=== PATIENT | female | born 1995 | race Caucasian/White ===

== ENCOUNTER 2019-01-30 15:30 | Emergency (ER) | payer OTHER, MEDICAID, SELFPAY ==
[2019-01-30 15:32] VITALS: BP 130/71; PULSE 92; RESP 18; TEMP 37.2; O2SAT 98; BMI 31.8
--- NOTE | 2019-01-30 17:03 | ED.VISSUMM ---
- ER Visit Summary Date of Service: 01/30/19 Chief Complaint: Vomiting in History of Present Illness: The patient is a 23 F presenting with vomiting in . Patient states she recently found out that she is . She believes she is approximately 2 weeks . She has had vomiting since yesterday. She believes she had 20 episodes of vomiting today. She denies diarrhea. Denies abdominal or pelvic pain. She complains of mild dysuria. She denies vaginal bleeding. Denies other complaints. Physical Examination: Vitals are stable. Patient is afebrile. Alert no acute distress. HEENT exam is unremarkable. Neck is supple. Lungs are clear and equal bilaterally. Heart is regular rate and rhythm. Abdomen is soft nontender nondistended. No rebound or guarding Extremities are unremarkable. Skin is warm and dry. Remainder of exam is unremarkable. Emergency Department Course and Treatment: Patient is given IV fluids, Phenergan. Chemistries unremarkable. Urinalysis shows trace ketones, 0 white blood cells. Following fluids, patient is feeling improved. She is able to tolerate p.o. in the emergency department. She is given a prescription for Phenergan. Advised to follow-up with PRODUCE INSPECTOR. She is advised to return to ED for worsening complaints. Disposition: Discharge home Impression: Vomiting in This note was generated with eTapestry dictation software. It may contain incorrect words, spelling, and punctuation that were not noted in review of the chart prior to signing ED Disposition - Plan for ED Patient: Instructions: ED Care Prescriptions: proMETHazine tablet [Phenergan] 25 mg PO Q6H PRN PRN #10 tablet PRN Reason: Nausea Referrals: [facility] [Primary Care Provider] -
[2019-01-30] MEDS: 0.9% Normal Saline 1,000 ML 999 ML IV ×2 (17:24→18:52)
[2019-01-30] MEDS: proMETHazine 25 MG/ML Syringe 6.25 MG IV (17:27)
[2019-01-30 17:47] LABS: Anion Gap 8 (5-15); BUN 6 mg/dL (7-18); BUN/Creat Ratio 10.9 RATIO (10-20); Calcium,Total 8.9 mg/dL (8.5-10.1); Chloride 104 mmol/L (98-107); Creatinine, Serum 0.55 mg/dL (0.55-1.02); EST Glomerular Filtration Rate 144 mL/min (>60); Est Glom Filt Rate - Afr Amer 174 mL/min (>60); Glucose 80 mg/dL (74-106); Potassium 3.8 mmol/L (3.5-5.1); Sodium Level 137 mmol/L (136-145)
[2019-01-30 18:43] LABS: Red Blood Cells-Urine 0 SEEN /hpf (0-5); White Blood Cells 0 SEEN /hpf (0-5)
[2019-01-30 18:48] LABS: Color, Urine Yellow (Yellow); Glucose, Dipstick Normal (Normal); Ketone-Dipstick 15 mg/dl (Negative); Leukocyte Esterase-Dipstick Negative /ul (Negative); Nitrite-Dipstick Negative (Negative); Occult Blood-Urine Negative /ul (Negative); Protein-Dipstick Negative (Negative); Urine Bilirubin Dipstick Negative (Negative); Urine Clarity Clear (Clear); Urine Urobilinogen Normal (Normal); Urine pH 6.5 (5.0 - 8.0)
[2019-01-30 18:54] LABS: Squamous Epithelial Cells - UA 0-5 SEEN /hpf (5-10)
[2019-01-30 18:55] LABS: Bacteria RARE /hpf (None Seen); Mucous, Urine RARE /hpf (<or=2+)
--- NOTE | 2019-01-30 20:35 | ED.DEP ---
ED Disposition - Plan for ED Patient: Instructions: ED Care Prescriptions: proMETHazine tablet [Phenergan] 25 mg PO Q6H PRN PRN #10 tablet PRN Reason: Nausea [facility] [[facility] [place] -
[2019-01-30 20:45] VITALS: BP 121/71; PULSE 76; RESP 16
== END 2019-01-30 20:45 | disposition home or self-care (01) ==
PROVIDERS: Emergency Provider Emergency Medicine
DX: O21.9 Vomiting of pregnancy, unspecified (principal); Z3A.01 Less than 8 weeks gestation of pregnancy; O99.331 Smoking (tobacco) complicating pregnancy, first trimester
CPT/HCPCS: 80048; 81001; 96361; 96374; 99283; J7030; A4216

== ENCOUNTER 2019-08-12 15:35 | Outpatient (CLI) | payer MEDICAID, SELFPAY ==
[2019-08-12 15:50] VITALS: BMI 33.0
--- NOTE | 2019-08-13 14:12 | OB.TRI.NOTE ---
History of Present Illness Date of Service: 08/12/19 Was patient seen by the physician?: No Reason For Visit: DECREASED MOVEMENT Date of Service: 08/12/19 Final DEVON: 09/28/19 Gestational age: 33 Weeks and 2 Days Allergies ciprofloxacin [From Cipro] Allergy (Verified 01/30/19 15:31) Hives metformin Allergy (Verified 01/30/19 15:31) Hives lactose Adverse Reaction (Verified 01/30/19 15:31) Diarrhea NST - FHR Rate Baby A Baseline: 125 Variability:: Moderate Accelerations:: 15 x 15 Decelerations:: None NST Reactive:: Yes, Appropriate for gestational age FHR Category:: Category I Uterine Activity:: quiet Impression/Plan 23-year-old 3 para 2 at 33-2/7 weeks gestation decreased movement. NST is reactive. Patient is concerned about well-being. Patient reports being told that she is concerned about her placenta. NST is reactive. Scheduled for consult and ultrasound tomorrow for M
== END 2019-08-12 16:35 | disposition home or self-care (01) ==
LOC: WPOUT 15:39 → WP 15:39
PROVIDERS: Referring Provider Obstetrics & Gynecology; Visit Provider Obstetrics & Gynecology
DX: O36.8130 Decreased fetal movements, third trimester, not applicable or unspecified (principal); Z3A.33 33 weeks gestation of pregnancy; Z88.1 Allergy status to other antibiotic agents
CPT/HCPCS: 59025; 59050; 99218; G0378

== ENCOUNTER 2019-09-09 06:44 | Inpatient (IN) | payer MEDICAID, OTHER, SELFPAY ==
[2019-09-09] MEDS: Lactated Ringers 1,000 ML 50 ML IV (07:35)
[2019-09-09 07:49] LABS: Absolute Lymphocyte Count 4.29 X10^3/uL (0.83-4.51); Absolute Neutrophil Count 12.6 X10^3/uL (2.0-7.7); Basophil# 0.05 X10^3/uL; Basophil% 0.3 % (0-1); Eosinophils% 1.1 % (0-5); Hematocrit 35.7 % (37-47); Hemoglobin 12.1 g/dL (12.0-15.0); Lymphocyte # 4.29 X10^3/ul (4.0); Lymphocyte % 22.9 % (19-41); Mean Corp Hgb Conc 33.9 g/dL (32-36); Mean Corpuscular Hgb 29.2 pg (27.0-32.0); Mean Corpuscular Volume 86.2 fL (81-99); Mean Platelet Vol. 11.4 fl (6.2-12.0); Monocyte# 1.41 X10^3/uL; Monocyte% 7.5 % (0-10); NRBC Flagged by Analyzer 0 % (0-5); Neutrophil # 12.57 X10^3/uL (2.7-7.7); Neutrophil % 67.2 % (47-70); POSITIVE MORPHOLOGY YES; Platelet Count 223 K/mm3 (150-450); RBC Distribution Width CV 13.1 % (11.6-14.6); RBC Distribution Width SD 40.5 fl (35.1-43.9); Red Blood Count 4.14 M/mm3 (4.2-5.4); White Blood Count 18.7 K/mm3 (4.4-11.0)
[2019-09-09 07:51] LABS: Differential Indicated SCAN CRITERIA MET
[2019-09-09 08:07] LABS: Atypical Lymphocyte 2+ %
[2019-09-09 08:08] LABS: Differential Comment SCANNED
[2019-09-09 08:10] VITALS: BMI 33.8
[2019-09-09] MEDS: Oxytocin 30 units/NS 500 ml 30 UNITS/500 ML IV.SOLN IV (08:10)
--- NOTE | 2019-09-09 12:19 | PCM.HP.OB ---
History Date of Admission: 09/09/19 Final DEVON: 09/28/19 Final DEVON Source: US <20 weeks Gestational age: 37 Weeks and 2 Days History of this : This is a 23 year-old, 3P2 at 37-2/7 weeks gestation presents for induction of labor due to gestational hypertension. The patient's diastolic blood pressures have been elevated in the 80s to 90s range in the office and at home. Her systolics have been within normal range. She denies any visual disturbances. She does have some mild ache this morning. Eyes any epigastric pain. She denies any regular contractions. No vaginal bleeding or leaking of fluid. She has a history of preeclampsia with her second . Surgical history: First full-term vaginal delivery without complications. She was induced. 7 pound 14 ounce . patient was diagnosed with preeclampsia. They attempted to induce her, patient reports she did get past 2 cm and they offered her to go home versus section and patient had a section. Allergies ciprofloxacin [From Cipro] Allergy (Verified 09/09/19 10:04) Hives metformin Allergy (Verified 09/09/19 10:04) Hives lactose Adverse Reaction (Verified 09/09/19 10:04) Diarrhea Home Medications: Home Medications Ferrous Sulfate [Iron] 325 mg PO BID 08/12/19 Ondansetron [Zofran Odt] 4 mg PO Q8H PRN PRN 08/12/19 Vits [Prenatabs FA] 1 tab PO DAILY 08/12/19 Aspirin [Aspirin, Baby] 81 mg PO DAILY@0800 09/09/19 Smoking Status: Current every day smoker Alcohol: None Number of Fetus(es): 1 NST - FHR Rate Baby A Baseline: normal Variability:: Moderate Accelerations:: 15 x 15 NST Reactive:: Yes Uterine Activity:: irreg ctxs History Past Pregnancies: Past Pregnancies Delivery Date Name GA/Weeks Outcome Route Weight Infant Gender Labor Length Anesthesia Delivery Location Provider FOB Expected Infant Delivery Method: Spontaneous Vaginal Review of Systems Constitutional: Denies: Chills, Fever Eyes: Denies: Blurred vision, Vision Change Cardiovascular: Reports: Edema - mild. Denies: Chest Pain Respiratory: Denies: Cough, Shortness of Breath Skin: Denies: Rash Neurological: Reports: Headaches - mild this am. Denies: Blurred vision, Seizures Psychiatric: Denies: Anxiety, Depression Physical Exam General: Alert, Cooperative, No apparent distress Cardiovascular: Regular rate Lungs: Normal air movement Abdomen: Soft, Non Tender, Non-Distended, Gravid, Appropriate for Gestational Age Extremities:: No edema - trace, Deep tendon reflexes - 3+, Other - no clonus Neurological: Cranial nerves II-XII grossly intact SOFTWARE TEST SPECIALIST: Normal external genitalia Estimated gestational size: Appropriate for gestational size Presentation: Cephalic Cervix Dilation (cm): 2 Station: -3 Effacement (%): 50 Assessment/Plan All Active Problems Physical exam, pre-employment (Acute) This is a 23 year-old, -0-0-2 at 37 2/7 weeks with gestational hypertension without evidence of preeclampsia. Patient is admitted for induction of labor. Risk benefits and alternatives to induction at 37 weeks have been discussed with the patient, questions were answered to her satisfaction she desires to proceed. Patient did receive betamethasone last week on 09/05 and 09/06/2019 in the office. In addition, risk benefits and alternatives to trial of labor versus section were discussed with patient, questions were answered to her satisfaction and she desires a trial of labor. Consent had been signed for this in the office as well. Seizure note: At approximately 8:40 AM the Aldana catheter was placed over the stylette through the cervical loss in the usual sterile fashion. The balloon was inflated to 30 cc and placement over the internal loss was confirmed. The patient and the fetus tolerated the procedure well.
[2019-09-09] MEDS: Lactated Ringers 500 ML 999 ML IV ×2 (18:12→19:58)
[2019-09-09] MEDS: fentaNYL-bupivacaine (epidural) 100 ML BAG EPIDURAL ×2 (18:57→23:53)
[2019-09-09] MEDS: Mag Hydrox/Al Hydrox/Simeth 30 ML UDC PO (19:27)
[2019-09-09] MEDS: Lactated Ringers 1,000 ML 200 ML IV (22:03)
[2019-09-10] MEDS: Lactated Ringers 500 ML 999 ML IV ×2 (00:50→04:06)
[2019-09-10] MEDS: Lactated Ringers 1,000 ML 200 ML IV (03:56)
[2019-09-10] MEDS: fentaNYL-bupivacaine (epidural) 100 ML BAG EPIDURAL (04:35)
[2019-09-10] MEDS: Amnioinfusion- 0.9% NS 1,000 ML IV.SOLN. 200 ML INTRA-UTER (04:35)
[2019-09-10] MEDS: Acetaminophen 500 MG Tablet 1000 MG PO (06:19)
[2019-09-10] MEDS: Oxytocin 30 units/NS 500 ml 30 UNITS/500 ML IV.SOLN 334 UNITS IV (07:05)
--- NOTE | 2019-09-10 07:18 | PCM.OPRPT ---
Vaginal Delivery Maternal Presentation: Medically Indicated Induction Method of Induction: Pitocin, Aldana Bulb, Amniotomy Medical Reason for Induction: Gestational Hypertension, - - previous Amniotic Membrane Rupture Type: Artificial Amniotic Fluid Description: Clear Final DEVON: 09/28/19 Final DEVON Source: US <20 weeks Gestational age: 37 Weeks and 3 Days Date of Procedure: 09/10/19 Pre-Operative Diagnosis: labor Post-Operative Diagnosis: same Surgery/ Procedure Performed: Spontaneous Vaginal Delivery Type of Anesthesia: Epidural Description of Procedure: A vigorous female infant was delivered ERIKA over intact perineum. Loose nuchal cord X2 was easily reduced. The remainder the infant was delivered with maternal pushing and gentle traction only in less than 15 seconds. The Pitocin infusion was initiated for active management of the third stage. The cord was clamped and cut after 1 minute. The was attended to by the waiting nursing staff. The placenta was delivered spontaneously and intact. The cervix and vagina were intact. The lower uterine segment was palpated and the scar was intact. Sponge and needle counts were correct. A vaginal sweep was completed by me. Presentation: ERIKA Placental Delivery Description: Spontaneous Placenta Disposition: [facility] Cord Vessel Description: 3 Vessels Nuchal Cord Compression: Without compression Cord Entanglement: Around neck x 2, loose Drain: Aldana to straight drain Estimated Blood Loss: 200 Infant A gender: Female (1 minute): 8 (5 minute): 8 Episiotomy Description: None Laceration: None Medications given after delivery: IV Pitocin Complications: None
[2019-09-10] MEDS: 0.9% Saline Lock 10 ML Syringe IV (09:41)
--- NOTE | 2019-09-10 12:00 | NURSING ---
Duval bulb removed, after 10 cc normal saline drained from duval bulb.
[2019-09-10 14:10] VITALS: BP 119/75; PULSE 87; RESP 20; TEMP 36.7
[2019-09-10 17:20] VITALS: BP 112/62; PULSE 80; RESP 18; TEMP 36.8
--- NOTE | 2019-09-10 19:50 | NURSING ---
Dr. Griffiths notified of pt. having numbness in left left from mid-calf down into foot. This has persisted through most of day, delivered at 0701 with epidural turned off at that time and removed at ~ 0930. Pt. reporting numbness has not changed for majority of day. Per Dr. Griffiths, will monitor this until 24 hrs and will see how pt. is doing in the am with numbness. Ok to d/c IV at this time from anesthesia standpoint.
[2019-09-10 19:56] VITALS: BP 115/57; PULSE 67; RESP 17; TEMP 37.1
--- NOTE | 2019-09-10 19:57 | NURSING ---
Pt. appropriate throughout day with . and pt. holding , checking and changing diapers. They are both alert about feeds. After instruction on bottles being good for 1 hr after seal broken, FOB found feeding bottle that had been opened 2 hrs. prior. This after 's first feed. For infant's next feed, there was an open bottle in room, had taken ~3 cc from bottle. When nursing back in to check appx. 1 hr from feed time, mother and father state that has been very sleepy, but that she keeps trying to put her blanket in her mouth. Attempt to feed per RN, and took 16cc of formula, burping well in between. Talked with parents about infant being very sleepy, and may need some encouragement to eat. Pt. verbalized understanding. At time for next feed, pt. states I need to be getting a bottle out for her. Encouraged pt. to unwrap and undress as needed to get to feed. When back in room for report, infant had taken 21 cc of formula without assist from nursing. Pt. and FOB very attentive to throughout day.
[2019-09-10 23:18] VITALS: BP 120/60; PULSE 82; RESP 16; TEMP 37.1; O2SAT 97
[2019-09-11 04:43] VITALS: BP 132/62; PULSE 78; RESP 16; TEMP 37.1
--- NOTE | 2019-09-11 08:33 | PCM.PN.OB ---
Subjective: Doing well per patient and nursing staff. Ambulating and taking PO without difficulty. Voiding and passing flatus. Pain controlled. Denies headache, visual changes, chest pain, or shortness of breath. Bottle feeding. Requesting D/C home today. - Physical Exam General: Alert, Oriented x3, Cooperative HEENT: Atraumatic, Normocephalic Neck: Trachea Midline Lungs: Clear to auscultation, No rhonchi, No wheeze Cardiovascular: Regular rate, Regular Rhythm, No murmurs Abdomen: Bowel Sounds Present Extremities: No edema Neurological: Deep Tendon Reflexes 2+/4 and Symmetrical Psych/Mental Status: Normal Affect, Appropriate Vital Signs Temp Pulse Resp BP Pulse Ox 98.7 F 78 16 132/62 H 97 09/11/19 04:43 09/11/19 04:43 09/11/19 04:43 09/11/19 04:43 09/10/19 23:18 Oxygen Delivery Method Room Air Weight: 197 lb 1.492 oz Body Mass Index (BMI) 33.8 Intake and Output for Last 24 Hours 09/09/19 09/10/19 09/11/19 23:59 23:59 23:59 Intake Total 2755.21 / 2755.21 2894.73 / 2894.73 Output Total 200 / 200 1850 / 1850 Balance 2555.21 / 2555.21 1044.73 / 1044.73 Medical Necessity - Tobacco Use Smoking Status: Current every day smoker Assessment/Plan All Active Problems Physical exam, pre-employment (Acute) A:PPD #1 Gestational HTN during P: 1) Doing well per patient and nursing staff. Requesting D/C home today. 2) BP normal high range, reviewed Pre-e warning signs, to make appointment Monday for BP check 3) Declines pain medications, will get OTC 4) D/C home
--- NOTE | 2019-09-11 08:39 | DCINST_ITS ---
Discharge Diet: No Restrictions Discharge Activity: Return to Normal Activity, May not drive while taking narcotic pain medications., May Shower, May Take a Tub Bath May resume sexual activity in: 4-6 weeks Weight Bearing Status: Full weight bearing Additional Activity Instructions:: Nothing in the vagina for 4-6 weeks. You may return to work/school in 6 weeks. Call your doctor if your incision/area has: Continuous Slow Oozing, Sudden Increased Bleeding, Increased Pain/ Swelling, Increased Redness, Foul Smelling Discharge Call your doctor if you observe: Inability to urinate, Inability to have a bowel movement, Using more than one pad per hour, Shortness of breath, Chest pain, Increased palpitations (irregular heartbeat), Uncontrolled pain Additional Instructions: If you experience any of the following, contact your healthcare provider. * Bleeding that soaks a pad every hour for 2 hours * Fever 100.4 or higher * Unrelieved incision or abdominal pain * Swelling, redness, discharge or bleeding from your incision or episiotomy site * Your incision begins to separate * Problems urinating (including inability to urinate or burning while urinating). * Visual changes * Severe headache * Flu-like symptoms * Pain or redness in one of both of your breasts * Pain, warmth, tenderness or swelling in your legs, especially the calf area * Frequent nausea and vomiting * Symptoms of depression or anxiety If you experience any of the following, call 911 or go to the nearest Emergency Room. * Chest pain * Problems breathing * Seizure activity * Partial or complete paralysis of a body part, slurred speech, weakness or drooping of the face, or a sudden inability to walk or hold your balance Allergies/Adverse Reactions: Allergies ciprofloxacin [From Cipro] Allergy (Verified 09/09/19 10:04) Hives metformin Allergy (Verified 09/09/19 10:04) Hives lactose Adverse Reaction (Verified 09/09/19 10:04) Diarrhea Medications to take at Discharge Ferrous Sulfate [Iron] 325 mg PO BID 08/12/19 Please Follow Up With: Chanelle John MD When: Call to make an appointment with your doctor in 5 days. Make appointment on Monday09/16/19 for BP check and visit at 6 weeks. Primary Care Physician: [facility] [Primary Care Provider] - Test Results: Test results from this visit will be discussed in further detail at your follow- up appointment, if applicable.
[2019-09-11 09:00] VITALS: BP 116/75; PULSE 74; RESP 16; TEMP 36.1; O2SAT 99
[2019-09-11 14:00] VITALS: BP 100/53; PULSE 63; RESP 16; TEMP 36.3; O2SAT 99
--- NOTE | 2019-09-11 15:12 | CASEMGMT ---
Social Work Assessment Labor and Delivery Unit Date of Referral: 09/10/2019 Time of Referral: 1953 Referred By: Dr. Yinka John Date of Intervention: 09/11/2019 Time of Intervention: 1255 Reason for Referral: resources History obtained from: medical records and mother of baby (MOB) Morenita Hernandez; father of baby (FOB) Pb Villegas also present. Household composition: MOB and FOB live together, deny any issues or concerns with home situation. MOB's and FOB's older son lives in the home, and MOB's oldest child from another marriage visits every other weekend. Patient's parent/guardian status: MOB and FOB have been since October 2018 but have been together longer. No reports of any domestic violence or safety issues in the home. JEFFRY denies nay abuse issues upon admission to the labor and delivery unit. JEFFRY was one other time and had one child from first marriage. Now two children from current marriage. Minor children include: Harris Triplett (age 5), He Villegas (18 months), and baby girl Alba Villegas (born 09.10.2019). Harris visits every other weekend and lives primarily with his father and stepmother in [place], [place] area due Harris starting school and that parents system having more flexibility with work schedule to adapt to school scheduling. JEFFRY reports she and FOB both work fulltime as well as both are in school so their schedules are a little more tight in being able to easily adjust to demands of school schedules. Medical History: JEFFRY is G3, P2 to 3 after delivering Alba. JEFFRY started care in the 1st trimester, and adequate thereafter. Chart indicates JEFFRY with gestational Hypertension and history of Preeclampsia. Alba born at 37 weeks, weighed 5 pounds 14 ounces, Apgars 8 and 9 at 1 and 5 minutes of life. Educational Status: JEFFRY graduated high school, currently attending [employer] taking general courses in preparation for admittance to the nursing program. No issues with reading, writing, or learning comprehension. 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 COMFORT works first shift at [employer]. JEFFRY also receives 1800 a month in disability through the [place]. MOB reports to be 90% disability through the [place]. Supplies: MOB and FOB report to have needed supplies including pack-n-play, cradle, bottles, formula, clothing, diapers, and wipes. Childcare/Caregiver(s): MOB and FOB. No daycare needed due to parents working opposite shifts at this point. Transportation: No issues reported, both parents drive. Programs/Agencies Involved: medicaid through [place]. History of WIC and [facility]. At this time decline referral to [facility]. No interest in reapplying for WIC but reports to know where to go if changes mind. [facility] and goes to the [facility] clinic for general medical needs. Children Services/Legal Issues: No legal issues for either. FOB reports history of [facility] Children services involvement after he was holding He and fell while holding the baby and baby hit his head. FOB reports children services made to obligatory visit after a child has a head injury and that this was a one time visit as injury consistent to reports of COMFORT falling while holding the baby. FOB reports after this accident though, and having a baby who had a head injury, FOShima started to take the baby to the doctors everytime He bumped his head or had a small scratch. FOB reports the doctors offices called children services for the parents overusing the medical office administrator. FOB report the case was opened for 45 days and closed out. No referrals to parenting classes and nothing went to court. No current or active involvement with children services. Behavioral Health Issues: Mental Health History: MOB reports upon leaving the MOB was diagnosed with depression, as MOB had wanted to make the her life career. MOB reports besides this not other history of depression or anxiety. No history of suicidal ideation or attempts. No history of depression or anxiety reported. Substance Use History: MOB and FOB both deny substance use issues. MOB denies alcohol, marihuana, cocaine, heroin, or meth during this . MOB did smoke tobacco. Drug Screens: None noted in the care records. Family/Social Stressors: No reports of current or recent social stressors. JEFFRY admits leaving the miliary was hard but has adjusted and reports that had she remained in the would not have met FOB. Support Systems: MOB reports FOB is a good emotional support. MOB reports to have good practical help from FOB's family and MOB's family who all live in this area. MOB reports will have help and that FOB will be home for a short time to help with transition home. Depression/Shaken Baby/Safe Sleeping: Educated to shaken baby prevention, and safe sleeping. depression and anxiety discussed including risk factors and importance of seeking out help and assistance. ASSESSMENT: Met with MOB and FOB in room, introducing to social work role and reason for visit. MOB held good eye contact, answered questions non-defensively and had appropriate mood and affect. MOB reports to feel to have adequate support from family and all needed baby supplies to get started. MOB expressed understanding of importance in letting supports and health care providers know should depression arise. MOB reports to feel a connectin to this baby, feeling there is a ramos present; excitement to have the baby. FOB quiet at first but then started to contribute to conversation, respectful towards MOB. This senior technical writer observed MOB gaze at baby who was under the bili lights, smile at baby and put hand on baby when baby fussed. Also observed FOB get up and attend to baby when baby became fussy. Parental interactions appropriate with the baby. PLAN: MOB and baby to home when ready. MOB has been given [facility] resource list of services sometimes helpful to new parents. depression packet provided as well, including resources for such. No other services requested or indicated. -COLEEN Gibbs, EQUITIES TRADER
[2019-09-11 20:00] VITALS: BP 115/65; PULSE 70; RESP 16; TEMP 36.2
[2019-09-12 01:39] VITALS: BP 98/52; PULSE 68; RESP 16; TEMP 36.6
[2019-09-12 07:30] VITALS: BP 118/72; PULSE 80; RESP 15; TEMP 36.8; O2SAT 98
[2019-09-12] MEDS: Etonogestrel 68 MG IMPLANT SQ (07:30)
--- NOTE | 2019-09-12 07:33 | DCINST_ITS ---
Discharge Diet: No Restrictions Discharge Activity: Return to Normal Activity, May not drive while taking narcotic pain medications., May Shower, May Take a Tub Bath May resume sexual activity in: 4-6 weeks Weight Bearing Status: Full weight bearing Additional Activity Instructions:: Nothing in the vagina for 4-6 weeks. You may return to work/school in 6 weeks. Call your doctor if your incision/area has: Continuous Slow Oozing, Sudden Increased Bleeding, Increased Pain/ Swelling, Increased Redness, Foul Smelling Discharge Call your doctor if you observe: Inability to urinate, Inability to have a bowel movement, Using more than one pad per hour, Shortness of breath, Chest pain, Increased palpitations (irregular heartbeat), Uncontrolled pain Additional Instructions: If you experience any of the following, contact your healthcare provider. * Bleeding that soaks a pad every hour for 2 hours * Fever 100.4 or higher * Unrelieved incision or abdominal pain * Swelling, redness, discharge or bleeding from your incision or episiotomy site * Your incision begins to separate * Problems urinating (including inability to urinate or burning while urinating). * Visual changes * Severe headache * Flu-like symptoms * Pain or redness in one of both of your breasts * Pain, warmth, tenderness or swelling in your legs, especially the calf area * Frequent nausea and vomiting * Symptoms of depression or anxiety If you experience any of the following, call 911 or go to the nearest Emergency Room. * Chest pain * Problems breathing * Seizure activity * Partial or complete paralysis of a body part, slurred speech, weakness or drooping of the face, or a sudden inability to walk or hold your balance Allergies/Adverse Reactions: Allergies ciprofloxacin [From Cipro] Allergy (Verified 09/09/19 10:04) Hives metformin Allergy (Verified 09/09/19 10:04) Hives lactose Adverse Reaction (Verified 09/09/19 10:04) Diarrhea Medications to take at Discharge Ferrous Sulfate [Iron] 325 mg PO BID 08/12/19 Ibuprofen [Motrin] 600 mg PO Q6H PRN #60 tab 09/12/19 The following prescriptions were given: Ibuprofen [Motrin] 600 mg PO Q6H PRN #60 tab PRN Reason: Pain Transmission Status: Pending to [facility] [id number] Please Follow Up With: Chanelle John MD - [phone] When: 1 week in my office for a BP check and 6 weeks for a exam [facility] [[facility] - Test Results: Test results from this visit will be discussed in further detail at your follow- up appointment, if applicable.
--- NOTE | 2019-09-12 07:34 | PCM.PN.OB ---
Subjective: pain well controlled, average lochia, no N/V - Physical Exam General: Alert, Cooperative, No apparent distress Vital Signs Temp Pulse Resp BP Pulse Ox 97.9 F 68 16 98/52 L 99 09/12/19 01:39 09/12/19 01:39 09/12/19 01:39 09/12/19 01:39 09/11/19 14:00 Oxygen Delivery Method Room Air Weight: 89.4 kg Body Mass Index (BMI) 33.8 Intake and Output for Last 24 Hours 09/10/19 09/11/19 09/12/19 23:59 23:59 23:59 Intake Total 2894.73 / 2894.73 Output Total 1850 / 1850 Balance 1044.73 / 1044.73 Medical Necessity - Tobacco Use Smoking Status: Current every day smoker Assessment/Plan All Active Problems Physical exam, pre-employment (Acute) PPD#2 s/p - successful doing well ready for d/c today infant was under bili lights last night, off of them now. Likely home today
--- NOTE | 2019-09-12 07:35 | OP.PCM_ITS ---
Report of Operation Date of Procedure: 09/12/19 Pre-Operative Diagnosis: contraception Post-Operative Diagnosis: same Surgery/Procedure Performed:: nexplanon insertion left arm Description of Surgical Findings:: Risk benefits and alternatives to Nexplanon insertion were discussed with patient, questions were answered to her satisfaction she desired to proceed. Consent was signed. Timeout was performed. Patient was placed in the dorsal supine position with her left arm placed at a right angle. Approximately 7 cm from the medial epicondyle over the triceps, proximally 5 cm below the biceps sulcus, the skin was prepped with ChloraPrep. 3 cc of 1% Xylocaine were used to anesthetize the area locally. The Nexplanon was then placed directly under the skin in the usual sterile fashion. The Nexplanon was deployed. It was palpated under the skin and excellent placement was confirmed. A Steri-Strip was placed over the puncture wound. Coban was placed around the wound. Wound instructions were reviewed with the patient. The patient tolerated the procedure well. Sign out was completed. intelligence manager: None Type of Anesthesia:: Local Estimated Blood Loss (mL): 0 Grafts/Implants Used: Nexplanon LOT [id number] Exp 01/15/2022 - Complications none
== END 2019-09-12 09:40 | disposition home or self-care (01) | DRG 807 ==
PROVIDERS: Admitting Provider Obstetrics & Gynecology; Referring Provider Obstetrics & Gynecology; Visit Provider Obstetrics & Gynecology
DX: O13.4 Gestational [pregnancy-induced] hypertension without significant proteinuria, complicating childbirth (principal); Z37.0 Single live birth; O99.334 Smoking (tobacco) complicating childbirth; F17.200 Nicotine dependence, unspecified, uncomplicated; O34.219 Maternal care for unspecified type scar from previous cesarean delivery; O69.81X0 Labor and delivery complicated by cord around neck, without compression, not applicable or unspecified; Z3A.37 37 weeks gestation of pregnancy; Z30.017 Encounter for initial prescription of implantable subdermal contraceptive; Z79.82 Long term (current) use of aspirin
CPT/HCPCS: 59025; 59050; 85025; 86850; 86900; 86901; 99218; J7030; J7120; A4216; G0378

== ENCOUNTER 2022-02-03 16:12 | Outpatient (CLI) | payer OTHER, SELFPAY ==
[2022-02-03 16:13] LABS: Bacteria 0 SEEN /hpf (None Seen); Mucous, Urine 0 SEEN /hpf (<or=2+); White Blood Cells 0 SEEN /hpf (0-5)
[2022-02-03 16:30] LABS: Color, Urine Yellow (Yellow); Glucose, Dipstick Normal (Normal); Ketone-Dipstick Negative (Negative); Leukocyte Esterase-Dipstick Negative /ul (Negative); Nitrite-Dipstick Negative (Negative); Occult Blood-Urine 50 /ul (Negative); Protein-Dipstick Negative (Negative); Specific Gravity, Urine 1.005 (1.002-1.030); Urine Bilirubin Dipstick Negative (Negative); Urine Clarity Sl. Cloudy (Clear); Urine Urobilinogen Normal (Normal)
[2022-02-03 16:38] LABS: Red Blood Cells-Urine 0-5 SEEN /hpf (0-5); Squamous Epithelial Cells - UA 0-5 SEEN /hpf (5-10)
== END 2022-02-03 23:59 | disposition home or self-care (01) ==
PROVIDERS: Visit Provider Physician Assistant
DX: R30.0 Dysuria (principal)
CPT/HCPCS: 81001; 87086; 87088

== ENCOUNTER 2023-08-17 18:57 | Emergency (ER) | payer OTHER, SELFPAY ==
[2023-08-17] VITALS (7 sets, daily range): BP systolic 102–145; BP diastolic 62–88; PULSE 68–109; RESP 14–28; TEMP 36.4; O2SAT 95–99; BMI 39.9
--- NOTE | 2023-08-17 19:00 | RAD_ITS ---
STUDY: X-RAY CHEST REASON FOR EXAM: Female, 27 years old. chest pain TECHNIQUE: PA COMPARISON: None. FINDINGS: The lungs are clear and expanded. Possible tiny calcified granuloma in right upper lobe versus benign bone island in the overlying the right clavicle There is no demonstrated pleural abnormality. Normal size heart. Normal mediastinum and dionne. Normal visualized pulmonary arteries. Normal visualized aortic arch and descending thoracic aorta. Normal visualized thoracic spine. Normal visualized ribs, clavicles, and shoulders. There is no demonstrated abnormality of the visualized soft tissue structures of the upper abdomen. RAD/Chest 1 View (Portable) IMPRESSION: No acute cardiopulmonary pathology Electronically Signed: Danny Del Castillo MD at 19:15 EDT ,
--- NOTE | 2023-08-17 19:00 | EKG12_ITS ---
Test Reason : CP Blood Pressure : / mmHG Vent. Rate : 093 BPM Atrial Rate : 093 BPM P-R Int : 126 ms QRS Dur : 094 ms QT Int : 360 ms P-R-T Axes : 025 -07 014 degrees QTc Int : 447 ms Normal sinus rhythm Minimal voltage criteria for LVH, may be normal variant ( R in aVL ) Borderline ECG No previous ECGs available Confirmed by LARA GERBER, SANDHYA ([id number]), editorial director WILTON ROSALES ([id number]) on 09/06/2023 11:27:09 AM Referred By: Confirmed By:SANDHYA BERMUDEZ MD
[2023-08-17 19:42] LABS: Absolute Lymphocyte Count 3.08 X10^3/uL (0.83-4.51); Basophil# 0.08 X10^3/uL; Basophil% 0.8 % (0-1); Eosinophil# 0.12 X10^3/uL; Eosinophils% 1.2 % (0-5); Hematocrit 41.7 % (37-47); Hemoglobin 13.9 g/dL (12.0-15.0); Lymphocyte # 3.08 X10^3/ul (0.83-4.51); Lymphocyte % 29.9 % (19-41); Mean Corp Hgb Conc 33.3 g/dL (32-36); Mean Corpuscular Hgb 28.1 pg (27.0-32.0); Mean Corpuscular Volume 84.4 fL (81-99); Mean Platelet Vol. 11.3 fl (6.2-12.0); Monocyte# 1.03 X10^3/uL; NRBC Flagged by Analyzer 0 % (0-5); Neutrophil # 5.97 X10^3/uL (2.7-7.7); Neutrophil % 57.9 % (47-70); Platelet Count 308 K/mm3 (150-450); RBC Distribution Width CV 13.3 % (11.6-14.6); RBC Distribution Width SD 41.1 fl (35.1-43.9); Red Blood Count 4.94 M/mm3 (4.2-5.4); White Blood Count 10.3 K/mm3 (4.4-11.0)
[2023-08-17 20:08] LABS: Anion Gap 5 (5-15); BUN 9 mg/dL (7-18); BUN/Creat Ratio 9.7 RATIO (10-20); Calcium,Total 9.6 mg/dL (8.5-10.1); Chloride 108 mmol/L (98-107); Creatinine, Serum 0.93 mg/dL (0.55-1.02); EST Glomerular Filtration Rate 76 mL/min (>60); Est Glom Filt Rate - Afr Amer 92 mL/min (>60); Estimated Creatinine Clearance 77.77 ml/min; Glucose 91 mg/dL (74-106); Potassium 3.5 mmol/L (3.5-5.1); Sodium Level 139 mmol/L (136-145); Troponin-I HS (w/2H Reflex) < 3 pg/mL (3.0-54.0)
--- NOTE | 2023-08-17 20:09 | ED.VIS.CHEST ---
HPI History of Present Illness Chief Complaint: Chest Pain Informant: patient Onset/Context/Timing Onset: Today Activity at onset: gradual Timing: Continuous Quality: Positive for Heaviness and Pressure Location: Substernal Worsened By: Breathing Relieved By: Nothing Associated Symptoms: Positive for Nausea, Dyspnea and Palpitations; Negative for Vomiting, Diaphoresis, Cough, Fever, Lightheadedness or Acid Reflux Narrative Narrative: Shaw with chest pain and shortness of breath that became worse tonight. Patient states it came on while she was driving to work tonight. Patient states that it came on gradually. Patient describes it as heaviness and pressure. Patient states it is over the substernal area. Patient states it is worse with breathing. Patient states nothing seems to help with it. Patient admits to some nausea and some palpitations where she feels like her heart is racing at times. Patient denies any vomiting or diaphoresis. Patient denies any cough. Patient admits to some slight shortness of breath. Patient states she has had similar episodes in the past couple weeks that resolved spontaneously. CVD Risk Factors: Positive for Family History 1' </=55 and Smoking; Negative for Hypertension, Diabetes or Hypercholesterolemia PE Risk Factors: Negative for Recent Travel/Surgery, Recent Immobilization, Prior DVT or PE, Cancer or OCP + Smoking + >/=35 PFSH PFSH Medical History Hx: UTI (urinary tract infection) Hypertension Home Medications etonogestrel 68 mg subdermal implant (Nexplanon) 1 implant subdermal ONCE 02/03/22 [History Last Taken Unknown] nitrofurantoin macrocrystal 100 mg capsule 100 mg PO Q12H #14 caps 02/03/22 [Rx Last Taken Unknown] Allergy/AdvReac Type Severity Reaction Status Date / Time ciprofloxacin [From Cipro] Allergy Hives Verified 08/17/23 18:58 metformin Allergy Hives Verified 08/17/23 18:58 lactose AdvReac Diarrhea Verified 08/17/23 18:58 Family History (Updated 02/03/22 @ 12:48 by Zo Garcia) Father Myocardial infarction Cancer LUNG & LIVER Mother Hypertension Surgical History History of delivery Social History Smoking Status: Current every day smoker tobacco type: e-cigarettes Electronic Cigarette Use: with nicotine ROS ROS ED Constitutional Constitutional ED: Denies chills or fever(s) Eyes Eyes: Denies blurry vision or change in vision ENT ENT ED: Denies rhinorrhea or sore throat Cardiovascular Cardiovascular: Reports chest pain and palpitations Respiratory/Chest Respiratory/Chest: Reports dyspnea; Denies cough Gastrointestinal Gastrointestinal: Reports nausea; Denies abdominal pain or vomiting Genitourinary Genitourinary ED: Denies dysuria or hematuria Musculoskeletal Musculoskeletal: Reports back pain; Denies neck pain Integumentary Denies abscess or rash Neurologic Neurologic: Denies headache(s) or weakness Allergic/Immunologic Allergic/Immunologic ED: Denies mouth swelling or urticaria EXAM Physical Exam Const Vital Signs: 08/17/23 18:58 08/17/23 19:29 08/17/23 19:31 Temperature 97.6 F L Temperature Source Temporal Pulse Rate 109 H Respiratory Rate 17 Respiratory Effort Normal Blood Pressure 145/83 H Blood Pressure Mean 103 Pulse Ox 98 Oxygen Delivery Method Room Air Room Air 08/17/23 18:57 08/17/23 19:57 08/17/23 21:00 Temperature Temperature Source Pulse Rate 98 82 77 Respiratory Rate 14 14 16 Respiratory Effort Blood Pressure 132/81 H 102/68 116/65 Blood Pressure Mean 98 79 82 Pulse Ox 98 95 99 Oxygen Delivery Method Room Air Room Air Room Air 08/17/23 20:11 08/17/23 20:15 Temperature Temperature Source Pulse Rate 85 86 Respiratory Rate 28 H 26 H Respiratory Effort Blood Pressure 145/62 H Blood Pressure Mean 89 Pulse Ox 98 Oxygen Delivery Method Room Air Positive well nourished, well developed and obese General Appearance ED: well developed and NAD Nutritional Appearance: obese HEENT normocephalic and atraumatic Eyes PERRL and EOMs intact bilaterally Neck supple and no JVD Chest Wall palpation of chest normal Resp normal respiratory effort and clear to auscultation bilaterally Effort and Inspection: Negative for respiratory distress Cardio regular rate, regular rhythm and no murmurs GI normal to inspection, nondistended, normoactive bowel sounds, soft to palpation, non-tender and non-distended Extremity normal to inspection General Extremety ED: Negative for edema or tenderness General Extremity: Negative for edema Neuro oriented x3, CN's II-XII intact bilaterally and no sensory deficits noted Sensorium / Orientation: awake and alert Motor Exam: strength 5/5 throughout Psych mental status grossly normal Heart Score History: Slightly/Non-Suspicious ECG: Normal Age: </= 45 years Risk Factors: 1 or 2 Risk Factors Score: 1 MDM MDM MDM Narrative Medical decision making narrative: Differential diagnosis includes cardiac dysrhythmia, cardiac ischemia, pneumonia, pulmonary embolism, pneumothorax, GERD, anxiety, and musculoskeletal pain. EKG will be obtained to assess for cardiac dysrhythmia and cardiac ischemia. Chest x-ray will be obtained to assess for pneumonia and pneumothorax. CBC will be obtained to assess for leukocytosis and anemia. Basic metabolic profile will be obtained to assess for electrolyte abnormality and renal function. High-sensitivity troponin will be obtained to assess for cardiac ischemia. 2-hour repeat high-sensitivity troponin will be obtained to assess for ongoing cardiac ischemia. D-dimer will be obtained to assess for pulmonary embolism. Lab Data Attestation: I reviewed the patient's lab results. Lab results narrative: CBC was reviewed and was within normal limits. Basic metabolic profile was reviewed and was essentially within normal limits. High-sensitivity troponin was reviewed and was normal. D-dimer was reviewed and was negative at less than 0.27. 2-hour repeat high-sensitivity troponin was reviewed and was normal at 3. Labs: Laboratory Results - last 24 hr 08/17/23 08/17/23 08/17/23 17:30 20:17 21:30 WBC 10.3 RBC 4.94 Hgb 13.9 Hct 41.7 MCV 84.4 MCH 28.1 MCHC 33.3 RDW Std Deviation 41.1 RDW Coeff of Darron 13.3 Plt Count 308 MPV 11.3 Immature Gran % (Auto) 0.200 Neut % (Auto) 57.9 Lymph % (Auto) 29.9 Sully % (Auto) 10.0 Eos % (Auto) 1.2 Baso % (Auto) 0.8 Absolute Neuts (auto) 6.0 Absolute Lymphs (auto) 3.08 Nucleated RBC % 0 D-Dimer Quant (PE/DVT) < 0.27 L Sodium 139 Potassium 3.5 Chloride 108 H Carbon Dioxide 26.0 Anion Gap 5 BUN 9 Creatinine 0.93 Estim Creat Clear Calc 77.77 Est GFR (MDRD) Af Amer 92 Est GFR (MDRD) Non-Af 76 BUN/Creatinine Ratio 9.7 L Glucose 91 Calcium 9.6 Troponin I High Sens < 3 L 3 Radiography Chest X-Ray - ED: 1 View, Read by ED Physician, Read by Radiologist and Normal Diagnostic Testing: Clinical Impression(s) from Imaging Studies Chest X-Ray 08/17/23 19:00 IMPRESSION: No acute cardiopulmonary pathology Electronically Signed: Danny Del Castillo MD at 19:15 EDT Reading Location ID and State: [facility] [place][note 3] / [place] Tel , Service support , Portable 1 view chest x-ray was obtained. On my independent interpretation, lung sharpe are clear. There is normal cardiac silhouette. Bony thorax is normal. There is no acute process noted. Radiologist also interpreted the x-ray and agrees. EKG Initial EKG: Attestation: I personally reviewed and interpreted this EKG as follows: Interpretation: Sinus Rhythm (93) and No Acute Injury Pattern Comments: EKG was obtained. On my independent interpretation, it showed a normal sinus rhythm with a rate of 93. [place] interval, QRS interval, and QTc intervals were all normal. [place] was normal. There are no acute ST or T wave changes. Prior EKG tracings: not available for review Prior: No Prior Treatment and Re-Evaluation :: Patient was given Tylenol here for headache. Patient was feeling better on reevaluation. Patient was advised of her findings. Patient has a HEART score of 1. Patient was advised that this is low risk for acute cardiac event. Patient was instructed to follow-up with her primary care physician in 5 to 7 days. Patient understood and was agreeable with the plan. All questions were answered. Discharge Plan Triage Chief Complaint: Chest Pain ED Provider: Dallas Soliz Dx/Rx/DC Orders Clinical Impression: Chest pain of uncertain etiology, Morbid obesity with BMI of 40.0-44.9, adult Instructions: ED Chest Pain, Uncertain Cause Prescriptions: No Action nitrofurantoin macrocrystal 100 mg capsule 100 mg PO Q12H Qty: 14 0RF Rx Instructions: must administer with a meal/food Nexplanon 68 mg implant 1 implant subdermal ONCE Rx Instructions: as a single dose [facility] Provider: [facility] Referrals: [facility] [Primary Care Provider] - 5-7 Days Disposition Disposition: Home, Self Care
[2023-08-17 21:03] LABS: D-Dimer Quantitative (DVT/PE) < 0.27 FEU/ug/m (0.27-0.49)
[2023-08-17 21:37] LABS: Reflex Troponin-HS? (from REC) Y
[2023-08-17] MEDS: Acetaminophen 500 MG Tablet 1000 MG PO (21:40)
[2023-08-17 22:12] LABS: Troponin-I HS 3 pg/mL (3.0-54.0)
== END 2023-08-17 22:47 | disposition home or self-care (01) ==
PROVIDERS: Emergency Provider Emergency Medicine; Visit Provider Emergency Medicine
DX: R07.9 Chest pain, unspecified (principal); E66.01 Morbid (severe) obesity due to excess calories; Z68.41 Body mass index [BMI] 40.0-44.9, adult; I10 Essential (primary) hypertension; Z79.3 Long term (current) use of hormonal contraceptives; F17.290 Nicotine dependence, other tobacco product, uncomplicated; R51.9 Headache, unspecified
CPT/HCPCS: 71045; 80048; 84484; 85025; 85379; 93005; 99285; A4216

== ENCOUNTER → 2024-05-23 | Outpatient (CLI) | payer MEDICAID, SELFPAY | END | disposition home or self-care (01) | PROVIDERS: Referring Provider Physician Assistant; Visit Provider Physician Assistant | DX: R30.0 Dysuria (principal) | CPT/HCPCS: 87077; 87086; 87088 ==